=== PATIENT | male | born 1990 | race Caucasian/White ===

== ENCOUNTER 2022-12-18 14:13 | Emergency (ER) | payer OTHER ==
[2022-12-18 14:27] VITALS: BP 129/78
[2022-12-18] MEDS ORDERED: SODIUM CHLORIDE 0.9% 1,000 ML IV STA (14:38)
--- NOTE | 2022-12-18 14:38 | ED Physician Documentation ---
History of Present Illness - Stated complaint Stated Complaint: VOMITING - Chief complaint Chief Complaint: General - History obtained from History obtained from: Patient - Additonal information Additional information: 32-year-old male with no significant medical history presents with nausea and vomiting since last night. Started around 11 PM, he vomited quite profusely for a couple of hours and then subsided, he was able to sleep through the night and slept in this morning. Vomiting was undigested food, liquid, no coffee-ground emesis, there was some streaks of blood in the emesis at one point in time.No fidel clots or significant bleeding however.He has not vomited today but still feels extremely nauseous. He does not have any fever or chills, no chest pain or difficulty breathing, no abdominal pain, no diarrhea or constipation, no urinary symptoms. He has tolerated some Gatorade this morning though has not tried to eat anything. He states no atypical foods, he did cookout yesterday but no one else got sick. No known sick contacts known else in the household is sick. He is active duty , and was recently in [place] but returned about 10 days ago, no international travel, no atypical foods or water sources. He does drink alcohol though not on a daily basis, typically only on the weekends. He did drink alcohol last night but does not think that is contributing to his symptoms today. Review of Systems Constitutional: reports: Reviewed and negative Eyes: reports: Reviewed and negative Nose: reports: Reviewed and negative Throat: reports: Reviewed and negative Cardiac: reports: Reviewed and negative Respiratory: reports: Reviewed and negative GI: reports: Nausea, Vomiting. denies: Abdominal Pain, Abdominal Swelling, Constipation, Diarrhea, Hematemesis, Bloody / black stool : reports: Reviewed and negative Skin: reports: Reviewed and negative Musculoskeletal: reports: Reviewed and negative Neurologic: reports: Reviewed and negative PD PAST MEDICAL HISTORY - Past Medical History Past Medical History: No Cardiovascular: None Neuro: None Endocrine/Autoimmune: None GI: None : None HEENT: None Psych: None Musculoskeletal: None Derm: None - Past Surgical History Past Surgical History: No - Present Medications Home Medications: Ambulatory Orders Medication Instructions Recorded Confirmed Famotidine [Pepcid] 20 mg PO BID #60 tablet 12/18/22 ONDANSETRON ODT Prepack 2 [ZOFRAN 4 mg TL Q6H #12 tablet 12/18/22 ODT Prepack 2] - Allergies Allergies/Adverse Reactions: Allergies Allergy/AdvReac Type Severity Reaction Status Date / Time Penicillins AdvReac Unknown Verified 12/18/22 14:24 - Social History Does the pt smoke?: No Smoking Status: Never smoker Does the pt drink ETOH?: No Does the pt have substance abuse?: No - Immunizations Immunizations are current?: Yes - POLST Patient has POLST: No PD ED PE NORMAL - Vitals Vital signs reviewed: Yes - General General: Alert and oriented X 3, No acute distress, Well developed/nourished - HEENT HEENT: Atraumatic, Pharynx benign - Cardiac Cardiac: RRR, No murmur - Respiratory Respiratory: No respiratory distress, Clear bilaterally - Abdomen Abdomen: Normal bowel sounds, Soft, Non tender, Non distended, No organomegaly - Derm Derm: Normal color, Warm and dry, No rash - Neuro Neuro: Alert and oriented X 3 Eye Opening: Spontaneous Motor: Obeys Commands Verbal: Oriented GCS Score: 15 - Psych Psych: Normal mood, Normal affect Results - Vitals Vitals: Vital Signs - 24 hr 12/18/22 14:22 Temperature 35.9 C L Heart Rate 64 Respiratory 17 Rate Blood Pressure 129/78 O2 Saturation 98 Oxygen O2 Source Room air - Labs Labs: Laboratory Tests 12/18/22 12/18/22 12/18/22 14:40 14:44 14:44 WBC 5.0 RBC 5.42 Hgb 17.3 Hct 48.7 MCV 89.9 MCH 31.9 H MCHC 35.5 RDW 10.9 L Plt Count 259 MPV 10.7 Neut # (Auto) 2.7 Lymph # (Auto) 1.8 Barron # (Auto) 0.4 Eos # (Auto) 0.1 Baso # (Auto) 0.0 Absolute Nucleated RBC 0.00 Nucleated RBC % 0.0 Sodium 141 Potassium 3.8 Chloride 102 Carbon Dioxide 28 Anion Gap 11.0 BUN 13 Creatinine 1.0 Estimated GFR (MDRD) 87 L Glucose 102 H Calcium 9.2 Total Bilirubin 1.0 AST 39 ALT 96 H Alkaline Phosphatase 49 Total Protein 8.4 H Albumin 5.1 Globulin 3.3 Albumin/Globulin Ratio 1.5 Lipase 26 Urine Color DARK YELLOW Urine Clarity CLEAR Urine pH 7.0 Ur Specific [place] 1.020 Urine Protein NEGATIVE Urine Glucose (UA) NEGATIVE Urine Ketones NEGATIVE Urine Occult Blood NEGATIVE Urine Nitrite NEGATIVE Urine Bilirubin NEGATIVE Urine Urobilinogen 0.2 (NORMAL) Ur Leukocyte Esterase NEGATIVE Ur Microscopic Review NOT INDICATED Urine Culture Comments NOT INDICATED PD Medical Decision Making - ED course Complexity details: reviewed results, re-evaluated patient, considered differential, d/w patient, d/w family ED course: Has a 32-year-old male presented with nausea and vomiting over the last Less than 24 hours. The patient is well-appearing on physical exam, nontoxic. His abdominal exam is reassuring, there are no signs of acute surgical abdomen, he has no tenderness or distention he has active bowel tones. The vomiting has seemed to stop but he continues to feel nauseous therefore we have placed a IV, gave him 1 L of fluid as well as 4 mg of IV Zofran. He did note some blood streaked emesis last night though has not had that today and I suspect this is simply from the vomiting itself, patient does drink alcohol but no history of alcoholic gastritis and labs are stable. He was advised to refrain from alcohol use though for the next 1 to 2 weeks, and we will give a short course of outpatient H2 nader. Symptoms are improving and his labs are stable and I do think he is stable for discharge home with ongoing home management. I recommended bland diet, starting with clear liquids and advancing as tolerated. Will discharge home with Zofran to use as needed the next couple of days. I discussed with patient that these are typically self-limiting symptoms and they improve in the next 1 to 2 days on their own however if he develops worsening symptoms to return to the ER. Departure - Departure Disposition: 01 Home, Self Care Clinical Impression: Nausea and vomiting in adult Condition: Good Instructions: ED Nausea Vomiting Prescriptions: Famotidine [Pepcid] 20 mg PO BID #60 tablet ONDANSETRON ODT Prepack 2 [ZOFRAN ODT Prepack 2] 4 mg TL Q6H #12 tablet Comments: Your labs are stable. I have prescribed a nausea medicine and an acid for you for the next several days, These were sent to the [facility] pharmacy in [place]. Please adhere to a bland diet, starting with clear liquids and then advancing as tolerated from there. You likely to be quite fatigued today and tomorrow before noting improvement. Typically this is self-limiting within 1 to 3 days.
[2022-12-18] MEDS ORDERED: ONDANSETRON 4 MG/2 ML VIAL IVP STA (14:41)
[2022-12-18 14:45] LABS: BILIRUBIN,URINE NEGATIVE (NEGATIVE); CLARITY,URINE CLEAR (CLEAR); GLUCOSE, URINE (UA) NEGATIVE (NEGATIVE); KETONES,URINE (UA) NEGATIVE (NEGATIVE); LEUKOCYTE ESTERASE, URINE NEGATIVE (NEGATIVE); NITRITE,URINE NEGATIVE (NEGATIVE); OCCULT BLOOD,URINE NEGATIVE (NEGATIVE); PROTEIN,URINE NEGATIVE (NEGATIVE); UROBILINOGEN,URINE 0.2 (NORMAL) E.U./dL (NORMAL)
[2022-12-18 14:49] LABS: BASOPHILS % (AUTO) 0.8 %; EOSINOPHILS # (AUTO) 0.1 10^3/uL (0.0-0.7); EOSINOPHILS % (AUTO) 1.8 %; HCT - HEMATOCRIT 48.7 % (42.0-52.0); HGB - HEMOGLOBIN 17.3 g/dL (14.0-18.0); LYMPHOCYTES # (AUTO) 1.8 10^3/uL (1.5-3.5); LYMPHOCYTES % (AUTO) 35.6 %; MEAN CORPUSCULAR HEMOGLOBIN 31.9 pg (27.0-31.0); MEAN CORPUSCULAR HGB CONC 35.5 g/dL (32.0-36.0); MEAN CORPUSCULAR VOLUME 89.9 fL (80.0-94.0); MEAN PLATELET VOLUME 10.7 fL (7.4-11.4); MONOCYTES # (AUTO) 0.4 10^3/uL (0.0-1.0); NEUTROPHILS # (AUTO) 2.7 10^3/uL (1.5-6.6); NEUTROPHILS % (AUTO) 54.6 %; PLT - PLATELET COUNT 259 10^3/uL (130-450); RED BLOOD COUNT 5.42 10^6/uL (4.70-6.10); RED CELL DISTRIBUTION WIDTH 10.9 % (12.0-15.0)
[2022-12-18 15:01] LABS: ALBUMIN 5.1 g/dL (3.2-5.5); ALBUMIN/GLOBULIN RATIO 1.5 (1.0-2.2); CALCIUM 9.2 mg/dL (8.5-10.3); POTASSIUM 3.8 mmol/L (3.5-5.0); TOTAL PROTEIN 8.4 g/dL (6.7-8.2)
== END 2022-12-18 16:26 | disposition home or self-care (01) ==
LOC: ED 14:13
DX: R11.2 Nausea with vomiting, unspecified (principal)
CPT/HCPCS: 36415; 80053; 81001; 81003; 83690; 85025; 87086; 96374; 99284